=== PATIENT | female | born 1960 | race Caucasian/White ===

== ENCOUNTER 2017-01-27 10:55 | Emergency (ER) | payer OTHER ==
[~2017-01-27] VITALS: Ht 160 cm; Wt 85.2 kg
[~2017-01-27 10:55] MED LIST: CALC600T33 PO; CITA40TA12 PO; DICY10CA12 PO; DIPH-416 PO; GABA-113 PO; HYDR-3785 PO; LISI-787 PO; MULT-513 PO; OMEP40CA PO; POTA10CA28 PO; PROM1TAB6 PO; SIMV20TA2 PO; TOPI50TA16 PO; ZNF4 PO
[2017-01-27 11:02] VITALS: TEMP 37; Ht 160 cm; Wt 85.2 kg
[2017-01-27] MEDS ORDERED: TIZA4TAB3 PO (11:30)
[2017-01-27] MEDS ORDERED: SIMV20TA2 PO (11:30)
[2017-01-27] MEDS ORDERED: PROM25TA9 PO (11:30)
[2017-01-27] MEDS ORDERED: ERGO1TAB12 PO (11:30)
[2017-01-27] MEDS ORDERED: OXYC-57 PO ×2 (11:30→13:28)
[2017-01-27] MEDS ORDERED: MULTCHW PO (11:30)
[2017-01-27] MEDS ORDERED: NRN300 PO (11:30)
[2017-01-27] MEDS ORDERED: LORA-741 PO (11:30)
[2017-01-27] MEDS ORDERED: CALC-452 PO (11:30)
[2017-01-27] MEDS ORDERED: [UNRECOGNIZED DRUG - OTHER] PO (11:30)
[2017-01-27] MEDS ORDERED: CITA40TA12 PO (11:30)
[2017-01-27] MEDS ORDERED: CYAN10005 PO (11:30)
[2017-01-27] MEDS ORDERED: MELA1TAB54 PO (11:30)
[2017-01-27] MEDS ORDERED: LISI-461 PO (11:30)
[2017-01-27] MEDS ORDERED: PERCOCET HOME PACK PO ONE (12:15)
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
[2017-01-27] MEDS ORDERED: OXYCODONE/ACETAMINOPHEN 5-325 TAB PO ONE (12:30)
--- NOTE | 2017-01-27 13:01 | DIAGNOSTIC IMAGING REPORT ---
RIGHT SHOULDER MIN 2 VIEWS ROUTINE CLINICAL HISTORY: Right shoulder pain status post trauma COMPARISON: None. DISCUSSION: No fractures or dislocations are visualized. Degenerative changes are present within the AC joint. IMPRESSION: No acute fractures or dislocations identified. Electronically signed by: Dimitri Lopez M.D. 01/27/2017 1:00 PM Dictated Date/Time: 01/27/2017 12:59 PM
--- NOTE | 2017-01-27 13:04 | DIAGNOSTIC IMAGING REPORT ---
RIGHT KNEE 3 VIEWS CLINICAL HISTORY: Fall with right knee pain. FINDINGS: AP, crosstable lateral, and sunrise views of the right knee are compared to study dated 12/18/2012. The skeletal structures are osteopenic. There is a nondistracted vertically oriented fracture through the medial patellar facet. This is best seen on the sunrise view. The distal femur and the proximal tibia and fibula appear maintained. There is minimal tricompartmental degenerative joint space narrowing. Small patellar enthesophytes are observed. A calcified fabella is incidentally noted. A joint effusion is observed. Prepatellar soft tissue swelling is noted. IMPRESSION: 1. There is a nondistracted vertically oriented fracture through the medial patellar facet. 2. No additional fracture is seen. 3. Joint effusion and soft tissue swelling. Electronically signed by: Eduard Clinton M.D. 01/27/2017 1:03 PM Dictated Date/Time: 01/27/2017 12:59 PM
--- NOTE | 2017-01-27 13:56 | EMERGENCY ROOM VISIT NOTE ---
ED Visit Note First contact with patient: 11:57 I have personally seen and evaluated the patient with the physician painter assistant. I agree with the diagnostic/management decisions and have personally been involved in these decisions and agree with the diagnosis.
[2017-01-27 14:06] VITALS: BP 120/87; PULSE 65; O2SAT 100
== END 2017-01-27 14:07 | disposition home or self-care (01) ==
LOC: EDBD 10:55 → C.EDC 10:58
DX: S82.001A Unspecified fracture of right patella, initial encounter for closed fracture (principal); S40.011A Contusion of right shoulder, initial encounter; W20.8XXA Other cause of strike by thrown, projected or falling object, initial encounter; E78.5 Hyperlipidemia, unspecified; I10 Essential (primary) hypertension; J45.909 Unspecified asthma, uncomplicated; F32.9 Major depressive disorder, single episode, unspecified; F17.200 Nicotine dependence, unspecified, uncomplicated; Z79.899 Other long term (current) drug therapy; Z80.9 Family history of malignant neoplasm, unspecified; Z83.3 Family history of diabetes mellitus; Z82.49 Family history of ischemic heart disease and other diseases of the circulatory system